=== PATIENT | male | born 1990 | race Caucasian/White ===

== ENCOUNTER 2022-02-08 19:05 | Emergency (ER) | payer OTHER ==
[~2022-02-08] VITALS: Ht 172.7 cm; Wt 77.1 kg
[2022-02-08] MEDS ORDERED: ULTRAM50 MG PO (20:11)
[2022-02-08] MEDS ORDERED: AMOX TR-K CLV1 EAC1 PO (20:11)
== END 2022-02-08 20:36 | disposition home or self-care (01) ==
LOC: ED 19:05
DX: S61.451A Open bite of right hand, initial encounter (principal); S61.452A Open bite of left hand, initial encounter; Z23 Encounter for immunization; W54.0XXA Bitten by dog, initial encounter; Y92.009 Unspecified place in unspecified non-institutional (private) residence as the place of occurrence of the external cause
CPT/HCPCS: 90471; 90715; 99283-25

== ENCOUNTER 2022-08-01 10:17 | Emergency (ER) | payer OTHER ==
[~2022-08-01] VITALS: Ht 172.7 cm; Wt 81.2 kg
[~2022-08-01 10:17] MED LIST: AMOX TR-K CLV1 EAC1 PO; ULTRAM50 MG PO
--- OUTSIDE RECORDS SUMMARY | 2022-08-01 10:20 | XMS ---
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 Doris has no Care Guidelines for this patient. Eddy VISIT COUNT (12 MO.) 3 [facility] Day H. TOTAL 3 NOTE: Visits indicate total known visits. ED/C VISIT TRACKING (12 MO.) 08/01/2022 10:[address] [facility] [place] TYPE: Emergency COMPLAINT: - L HAND SPLINTER 07/31/2022 14:27 [facility] [place] TYPE: Emergency COMPLAINT: - L FINGER INJURY 02/08/2022 19:06 [facility] [place] TYPE: Emergency COMPLAINT: - ANIMAL BITE DIAGNOSES: - Bitten by dog, initial encounter - Open bite of left hand, initial encounter - Unspecified place in unspecified non-institutional (private) residence as the place of occurrence of the external cause - Open bite of right hand, initial encounter - Encounter for immunization INPATIENT VISIT TRACKING (12 MO.) No inpatient visits to display in this time frame [email or web address]
[2022-08-01] MEDS ORDERED: CEPHALEXIN500 M1 PO (14:21)
== END 2022-08-01 14:20 | disposition home or self-care (01) ==
LOC: ED 10:17
PROC: 0HCGXZZ Extirpation of Matter from Left Hand Skin, External Approach (ICD-10-PCS; principal; 2022-08-01)
DX: S60.451A Superficial foreign body of left index finger, initial encounter (principal); W45.8XXA Other foreign body or object entering through skin, initial encounter
CPT/HCPCS: 10120; 99283-25

== ENCOUNTER 2024-07-20 16:29 | Observation (INO) | payer OTHER ==
[~2024-07-20] VITALS: Ht 172.7 cm; Wt 70.4 kg
--- NOTE | 2024-07-20 01:15 | NUR ---
PT ASLEEP, AWAKEN EASILY FOR VS, VS STABLE, PT DENIES CONCERNS OR COMPLAINTS, IV REMAINS AT TKO, PT BACK TO SLEEP.
[~2024-07-20 16:29] MED LIST changes: +CEPHALEXIN500 M1 PO; +SEVOFLURANE 250 ML BTL INH ONE
[2024-07-20] MEDS ORDERED: ETOMIDATE 40 MG/20 ML VIAL IV ONE (18:30)
[2024-07-20 20:03] LABS: BASOPHILS 0.4 % (0-2); EOSINOPHILS 0.3 % (0-6); HEMATOCRIT 39.9 % (35.0-50.0); HEMOGLOBIN 14.3 g/dL (12.0-18.0); LYMPHOCYTES 10.1 % (24-44); MCH 31.8 (27-36); MCHC 35.7 g/dl (30-36); MONOCYTES 5.5 % (0-12); NEUTROPHILS 83.7 % (39-80); PLATELET COUNT 293 K/uL (140-440); RBC 4.48 M/ul (4.3-5.7); RDW 12.5 (10.5-15.0)
[2024-07-20 20:14] LABS: PARTIAL THROMBOPLASTIN TIME 26.1 Sec (22.9-41.3)
[2024-07-20 20:15] LABS: INR 1.05 (0.80-1.30)
[2024-07-20 20:18] LABS: ALBUMIN 4.2 g/dL (3.4-5.0); ALBUMIN/GLOBULIN RATIO 1.31 (1.1-2.4); BILIRUBIN, TOTAL 0.5 ng/dL (0.2-1.0); BUN/CREATININE RATIO 11.42 (6.0-28.6); CALCIUM 8.6 mg/dL (8.5-10.1); CREATININE, SERUM 0.7 mg/dL (0.70-1.30); PROTEIN, TOTAL 7.4 g/dL (6.4-8.2)
[2024-07-20] MEDS ORDERED: ETOMIDATE 40 MG/20 ML VIAL ONE (20:21)
[2024-07-20] MEDS ORDERED: METOCLOPRAMIDE HCL 10 MG/2 ML SDV ONE (20:30)
[2024-07-20] MEDS ORDERED: propofoL 200 MG/20 ML VIAL ONE (20:30)
[2024-07-20] MEDS ORDERED: ondansetron HCL 4 MG/2 ML VIAL ONE (20:30)
[2024-07-20] MEDS ORDERED: DEXAMETHASONE SOD PHOS 4 MG/ML VIAL ONE ×2 (20:30)
[2024-07-20] MEDS ORDERED: LACTATED RINGER'S 1,000 ML IV ONE (20:30)
[2024-07-20] MEDS ORDERED: SUCCINYLCHOLINE IN 0.9% NACL 200 MG/10 ML SYRINGE ONE (20:30)
[2024-07-20] MEDS ORDERED: SUGAMMADEX SODIUM 200 MG/2 ML ML ONE (20:30)
[2024-07-20] MEDS ORDERED: KETOROLAC TROMETHAMINE 30 MG/ML VIAL ONE (20:30)
[2024-07-20] MEDS ORDERED: ROCURONIUM BROMIDE 50 MG/5 ML SYR ONE (20:30)
[2024-07-20] MEDS ORDERED: FAMOTIDINE 20 MG/ 2 ML VIAL ONE (20:30)
[2024-07-20] MEDS ORDERED: dexmedeTOMIDine HCl 200 MCG/2 ML VIAL ONE (21:13)
[2024-07-20] MEDS ORDERED: NALOXONE HCL 0.4 MG SYR IV PRN ×2 (21:45→22:00)
[2024-07-20] MEDS ORDERED: METOCLOPRAMIDE HCL 10 MG/2 ML SDV IV PRN (22:00)
[2024-07-20] MEDS ORDERED: KETOROLAC TROMETHAMINE 30 MG/ML VIAL IV PRN (22:00)
[2024-07-20] MEDS ORDERED: ondansetron HCL 4 MG/2 ML VIAL IV PRN (22:00)
[2024-07-20] MEDS ORDERED: IBLOOD GLUCOSE TEST STRIP 1 EA TEST VI PRN (22:00)
[2024-07-20] MEDS ORDERED: fentaNYL citrate 50 MCG/ML SDV IV PRN (22:00)
[2024-07-20] MEDS ORDERED: PROCHLORPERAZINE EDISYLATE 10 MG/2 ML VIAL IV PRN (22:00)
[2024-07-20] MEDS ORDERED: droPERidol 5 MG/2 ML VIAL IV PRN (22:00)
[2024-07-20] MEDS ORDERED: MORPHINE SULFATE 10 MG/ML VIAL IV PRN (22:00)
--- NOTE | 2024-07-20 22:01 | NUR ---
07/20/242200 Michelle Bowen 2141- PT ARRIVES TO PACU FROM OR VIA BED. PT IS RESPONSIVE TO VERBAL STIMULI AT THIS TIME AND NO AIRWAY SUPPORT IN PLACE. RESPIRATIONS ARE EVEN AND UNLABORED AT THIS TIME, NO SIGNS OF DISTRESS. PT ON 10L OF O2 VIA MASK. REPORT RECIEVED FROM NAE SIEGEL. 2145- PT TITRATED TO RA FROM 10L OF O2 VIA MASK. O2 >90% AT THIS TIME. RESPIRATIONS EVEN AND UNLABORED, PT REMAINS RT LATERAL POSITION. 2149- PT REPORTS NO PAIN AT THIS TIME AND RESPONSIVE TO VERBAL STIMULI ASKING QUESTIONS APPROPRIATELY. PT EYES CLOSED, RESPIRATIONS EVEN AND UNLABORED AT THIS TIME. 2199- PT CONTINUES TO REPORT NO PAIN AND PASSING GAS WITHOUT DIFFICULTY. PT REMAINS ON RA W/O2 >90%. RESPIRATIONS EVEN AND UNLABORED, NO SIGNS OF DISTRESS.
--- NOTE | 2024-07-20 22:08 | NUR ---
pt ARRIVED TO MS FLOOR FROM PACU, BEDSIDE REPORT RECEIVED FROM DRAWING MACHINE OPERATOR JEFF. pt AWAKE AND RESTING IN BED, ON RA. CPOX IN PLACE, SPO2 MID 90'S AND HR LOW 90'S. NO DISTRESS NOTED, pt SOMEWHAT DROWSY BUT EASILY AWAKENS TO VOICE AND INTERACTIVE WITH STAFF. D/T pt NOT HAVING RELIABLE/SAFE RIDE HOME (HE DROVE HIMSELF) pt TO STAY THE NIGHT PER MD AND MD WILL REASSESS pt IN THE AM. VSS, IV SITE WNL- PER MD OKAY FOR REMAINING BAG TO INFUSE THEN CAN SALINE LOCK. pt UP SBA AND PASSED GAS IN BED, INCONTINENT OF VERY SMALL GREEN COLORED STOOL AND ON BSC AND NOW BACK IN BED. BED ALARM RESUMED AND CALL LIGHT IN REACH. POC DISCUSSED WITH pt AND pt VERBALIZED UNDERSTANDING. WILL CONTINUE TO MONITOR.
[2024-07-20 22:36] VITALS: BP 107/64
--- NOTE | 2024-07-20 23:11 | NUR ---
SECOND SET POST OP VSS. GAG REFLEX NOTED AND pt TOLERATING JELLO AND FRESH ICE WATER AT THIS TIME. NO FURTHER NEEDS OR CONCERNS VERBALIZED, CALL LIGHT IN REACH.
[2024-07-20 23:13] VITALS: BP 120/69
--- NOTE | 2024-07-21 00:29 | NUR ---
ROUNDED ON pt, pt RESTING QUIETLY IN BED ON RIGHT SIDE. DENEIS PAIN AND NAUSEA, VSS. NO ADDITIONAL NEEDS OR CONCERNS VERBALIZED. CALL LIGHT IN REACH.
--- NOTE | 2024-07-21 00:50 | NUR ---
REPORT RECEIVED FROM RAMANDEEP KING, ASSUMING CARE OF PT, PT APPEARS TO SLEEP, LAYING ON RIGHT SIDE.
[2024-07-21 01:15] VITALS: BP 103/59
[2024-07-21 01:23] VITALS: BP 103/59
--- NOTE | 2024-07-21 03:00 | NUR ---
PT APPEARS TO SLEEP, RESP EVEN AND REG, WITHOUT DISTRESS.
--- NOTE | 2024-07-21 04:09 | NUR ---
IV SALINE LOCKED, WNL. AWOKE EASILY TO VOICE, DENIES NEEDS OR CONCERNS. CALL LIGHT IN REACH.
[2024-07-21 05:41] VITALS: BP 130/81
--- NOTE | 2024-07-21 06:00 | NUR ---
pt ASKING ABOUT WHEN HE CAN GO HOME, PER MD ROUNDING LAST NIGHT MD TO ROUND ON pt PRIOR TO DC THIS MORNING, SNACKS AND ORANGE JUICE PROVIDED, pt REMAINS VERY POLITE AND APPRECIATIVE OF CARES. CALL LIGHT IN REACH.
--- NOTE | 2024-07-21 07:38 | NUR ---
PT RESTING EYES CLOSED AT TIME OF SHIFT REPORT LEFT UNDISTURBED. AWAKE NOW DENIES DISCOMFORTS OR NEEDS OF. CALL LIGHT AND NEEDED ITEMS IN REACH FRESH H20 TO BEDSIDE.
--- NOTE | 2024-07-21 08:41 | NUR ---
PT SITTING UP IN BED REPORTS PASSING STOOL WITH NO BLOOD OR PAIN, STATES HE FEELS FINE AND IS READY TO DC.
[2024-07-21 09:12] VITALS: BP 142/77
--- NOTE | 2024-07-21 09:21 | OR ---
[facility] [address], [place] [address] Signed DATE OF OPERATION: 07/20/2024 SURGEON: Christina Villegas MD PROCEDURES: 1. Anorectal examination under anesthesia. 2. Extraction of rectal foreign body. 3. Sigmoidoscopy. INDICATIONS: This is a 34-year-old male who accidentally inserted a vibrating foreign body in the rectum and he was unable to extract it himself, therefore he came to the emergency room seeking medical attention. After multiple failed attempts in the emergency room, an emergency room physician was consulted to evaluate the patient and I made a determination to take him to the operating room where under general anesthesia we can have a better assessment of the problem and go ahead and extract it and visualize any potential injury. DESCRIPTION OF PROCEDURE: After obtaining informed consent, the patient was taken to the operating room where he was placed in a lithotomy position. Once the patient was fully paralysed, the anorectal area was thoroughly inspected with anoscopy. I could tell that the proximal end of the foreign body was approximately 8 cm from the anal verge. I could not easily bring it down, however, using some pelvic sternal pressure, I was able to gradually bring it down and extracted successfully. The foreign was still vibrating at the time of extraction. Once the foreign body was extracted, I went ahead and turned my attention to perform a sigmoidoscopy, which was done after lubricating the anus with proper lubrication. The scope was then carefully advanced all the way to the proximal sigmoid colon. At that point, the scope was then pulled back slowly and carefully inspecting the entire mucosa of the sigmoid colon as well as direct anal area. Minor mucosal superficial bruises were identified. No ulceration, perforation, or bleeding were noted. At that point, the scope was then pulled out and the patient was then taken to the recovery room in good and stable condition. FINDINGS: 6-inch foreign body vibrating was identified about 8 cm from the anal verge. Upon completion of the sigmoidoscopy, no significant pathology was identified. Electronically Signed By: CHRISTIAN VILLEGAS MD 07/21/24 0921 PATIENT NAME: KASEY HAMMOND OPERATIVE REPORT DATE OF : [birth year] REPORT #: [id number] PHYSICIAN: CHRISTIAN VILLEGAS MD PCP: NO PRIMARY CARE PHYSICIAN REPORT IS CONFIDENTIAL AND NOT TO BE RELEASED WITHOUT AUTHORIZATION [address] [address] Signed MD ELY [email or web address] /[id number] Copies: ~ Electronically Signed By: CHRISTIAN VILLEGAS MD 07/21/24 0921 PATIENT NAME: CASE,KASEY Hernandez OPERATIVE REPORT DATE OF : [birth year] REPORT #: [id number] PHYSICIAN: CHRISTIAN VILLEGAS MD PCP: NO PRIMARY CARE PHYSICIAN REPORT IS CONFIDENTIAL AND NOT TO BE RELEASED WITHOUT AUTHORIZATION
[2024-07-21 09:34] VITALS: BP 142/77
== END 2024-07-21 09:25 | disposition home or self-care (01) ==
LOC: ED 16:29 → MS 16:32
PROVIDERS: Emergency Medicine; ADMIT Transplant Surgery; ATTEND Transplant Surgery
PROC: 0DCP8ZZ Extirpation of Matter from Rectum, Via Natural or Artificial Opening Endoscopic (ICD-10-PCS; principal; 2024-07-20 21:00)
DX: T18.5XXA Foreign body in anus and rectum, initial encounter (principal); F90.9 Attention-deficit hyperactivity disorder, unspecified type; W44.8XXA Other foreign body entering into or through a natural orifice, initial encounter
CPT/HCPCS: 00811; 36415; 72170; 80053; 85025; 85610; 85730; 99285; J0330; J1100; J1885; J2405; J2704; J2765; J3490; J7121